=== PATIENT | female | born 1985 | race American Indian/Alaskan Native ===

== ENCOUNTER 2016-11-15 12:29 | Emergency (ER) | payer SELFPAY ==
[2016-11-15 13:04] VITALS: BP 152/89
== END 2016-11-15 22:45 | disposition left against medical advice (07) ==
LOC: ED 12:29
DX: M54.2 Cervicalgia (principal); Z53.21 Procedure and treatment not carried out due to patient leaving prior to being seen by health care provider

== ENCOUNTER 2016-11-19 17:58 | Emergency (ER) | payer OTHER ==
[2016-11-19] MEDS ORDERED: TYLENOL ONE (19:14)
[2016-11-19] MEDS ORDERED: TYLENOL PO ONE (19:20)
--- NOTE | 2016-11-20 | Emergency Department Report ---
HPI - General Chief Complaint: Neck Pain/Injury Time Seen by Provider: 11/19/16 23:33 - HPI HPI: She is a 31-year-old female with no prior trauma or injury presents ED complaining of left-sided neck pain 3 weeks. Patient states pain is throbbing and spasmatic and intermittent throughout the day. Patient states sometimes she feels it stiffen up and pain with certain movement of the neck. Patient denies any trauma or injury. She denies taking any medication. She denies any allergies. She denies fevers chills nausea vomiting abdominal pain chest pain or any other problems. ED Past Medical Hx - Past Medical History Previous Medical History?: No - Surgical History Past Surgical History?: No - Social History Smoking Status: Never Smoker Substance Use Type: Alcohol - Medications Home Medications: Home Medications Medication Instructions Recorded Confirmed Last Taken Type Cyclobenzaprine [Flexeril] 10 mg PO QHS PRN #20 tablet 11/19/16 Unknown Rx Naproxen [Naprosyn] 500 mg PO BID #30 tablet 11/19/16 Unknown Rx ED Review of Systems ROS: Stated complaint: NECK PAIN Other details as noted in HPI Constitutional: denies: chills, fever Eyes: denies: eye pain, eye discharge, vision change ENT: denies: ear pain, throat pain Respiratory: denies: cough, shortness of breath, wheezing Cardiovascular: denies: chest pain, palpitations Endocrine: no symptoms reported Gastrointestinal: denies: abdominal pain, nausea, diarrhea Genitourinary: denies: urgency, dysuria, discharge Musculoskeletal: denies: back pain, joint swelling, arthralgia Skin: denies: rash, lesions Neurological: denies: headache, weakness, paresthesias Psychiatric: denies: anxiety, depression Hematological/Lymphatic: denies: easy bleeding, easy bruising Physical Exam - Physical Exam Vital Signs: Vital Signs 11/19/16 19:19 Temperature 98.0 F Pulse Rate 99 H Respiratory 20 Rate Blood Pressure 136/89 [Right] O2 Sat by Pulse 100 Oximetry Physical Exam: GENERAL: Alert and oriented x3, no apparent distress, Normal Gait, atraumatic. HEAD: Head is normocephalic and a-traumatic. EYES: Extra ocular muscles are intact. Pupils are equal, round, and reactive to light and accommodation. NECK: Supple. Non edematous, No carotid bruits. No lymphadenopathy or thyromegaly. No C-spine tenderness. All tenderness to palpation of the left sternocleidomastoid muscle. full range of motion. No nucal rigidity LUNGS: Symetrical with respiration, No wheezing, no rales or crackles, CTAB. HEART: S1, S2 present, regular rate and rhythm without murmur, no rubs, no gallops. ABDOMEN: No organomegaly was noted,Positive bowel sounds, soft, and non- distended. . Nontender to palpation on all Quadrants, NO CVA tenderness. EXTREMITIES/MUSCULOSKELETAL: No cyanosis, clubbing, rash, lesions or edema. Full ROM bilaterally. NEUROLOGIC: The patient is cooperative with no focal neurologic deficits. Cranial nerves II through XII are grossly intact. Normal speech. rg.ns. SKIN: Warm and dry, No lesions, No ulceration or induration present. ED Course Vital Signs 11/19/16 19:19 Temperature 98.0 F Pulse Rate 99 H Respiratory 20 Rate Blood Pressure 136/89 [Right] O2 Sat by Pulse 100 Oximetry ED Medical Decision Making - Medical Decision Making 31-year-old female presents with neck muscle strain ED course: Discussed the patient take medication as discussed There are no nucal rigidity. Discussed follow-up with primary care physician. Discussed with patient sleeping techniques may have caused muscle strain. Discussed the patient if worsening symptoms to return to ED Vital signs are normal patient is in no acute or restricted distress. Patient verbally states she understands instructions given and will follow up Critical care attestation.: If time is entered above; I have spent that time in minutes in the direct care of this critically ill patient, excluding procedure time. ED Disposition Clinical Impression: Myalgia Neck muscle strain Qualifiers: Encounter type: initial encounter Qualified Code(s): S16.1XXA - Strain of muscle, fascia and tendon at neck level, initial encounter Disposition: DISCHARGED TO HOME OR SELFCARE Is pt being admited?: No Does the pt Need Aspirin: No Condition: Stable Instructions: Muscle Strain (ED), Heat Pack Application (ED) Prescriptions: Cyclobenzaprine [Flexeril] 10 mg PO QHS PRN #20 tablet PRN Reason: Muscle Spasm Naproxen [Naprosyn] 500 mg PO BID #30 tablet Referrals: PRIMARY CAREMD [Primary Care Provider] - 3-5 Days ALIYAH DIOP MD [Referring] - 3-5 Days [facility] [Outside] - 3-5 Days [facility] [Outside] - 3-5 Days Forms: Work/School Release Form(ED) Time of Disposition: 23:58
[2016-11-20 00:33] VITALS: BP 128/80
== END 2016-11-20 00:05 | disposition home or self-care (01) ==
LOC: ED 17:58
DX: S16.1XXA Strain of muscle, fascia and tendon at neck level, initial encounter (principal); M79.1 Myalgia; X58.XXXA Exposure to other specified factors, initial encounter; Y93.89 Activity, other specified; Y99.8 Other external cause status; Y92.89 Other specified places as the place of occurrence of the external cause
CPT/HCPCS: 99282